=== PATIENT | female | born 1950 | race Hispanic/Latino ===

== ENCOUNTER 2017-02-25 01:38 | Observation (INO) | payer BC ==
[~2017-02-25] VITALS: Ht 152.4 cm; Wt 72.7 kg
[2017-02-25 02:28] LABS: HEMATOCRIT 33.6 % (36.0-46.0); MCH 25.3 PG (29.0-34.0); MCV 81.8 FL (83-99); MEAN PLAT.VOLUME 9.6 uM^3 (9.5-12.4); PLATELET COUNT 368 K/uL (156-360); RBC DIS.WIDTH-CV 15.5 % (11.8-14.6); RBC DIS.WIDTH-SD 46.2 % (39-53); RED BLOOD COUNT 4.11 M/uL (3.80-5.20); WHITE BLOOD COUNT 8.3 K/uL (4.1-10.2)
[2017-02-25 02:38] LABS: CHLORIDE 108 mEq/L (99-109); POTASSIUM 3.6 mEq/L (3.7-5.4); SODIUM 141 mEq/L (136-147)
[2017-02-25 02:40] LABS: GLUCOSE 127 mg/dL (70-99)
[2017-02-25 02:41] LABS: ANION GAP 6 MEQ/L (2-14)
[2017-02-25 02:44] LABS: UREA NITROGEN (BUN) 17 mg/dL (9-23)
[2017-02-25 02:48] LABS: GFR ESTIMATE (CALCULATED) > 59 mL/min/
[2017-02-25 05:07] LABS: TOTAL BILIRUBIN 0.2 mg/dL (0.0-1.0)
[2017-02-25 05:08] LABS: ALKALINE PHOSPHATASE 116 IU/L (3-129)
[2017-02-25 05:10] LABS: DIRECT BILIRUBIN 0.1 mg/dL (0.0-0.3); TROP-I INTERPRETATION NEGATIVE; TROPONIN-I < 0.01 ng/mL (0.0-0.30)
[2017-02-25 05:11] LABS: LIPASE 18 U/L (1.0-51.0)
[2017-02-25 08:29] LABS: SALICYLATE < 3.0 MG/DL (15-30)
[2017-02-25 09:47] VITALS: BP 136/74
[2017-02-25 12:01] VITALS: BP 119/55
[2017-02-25 14:07] LABS: IMM.RETIC FRACTION 13.1 % (3-19); RETIC HGB EQUIVALENT 27.4 (28-36); RETICULOCYTE COUNT 1.2 % (0.5-1.8)
[2017-02-25 16:05] VITALS: BP 118/55
[2017-02-25 16:09] LABS: TROP-I INTERPRETATION NEGATIVE; TROPONIN-I < 0.01 ng/mL (0.0-0.30)
[2017-02-25 16:23] LABS: IRON 50 MCG/DL (35-150)
[2017-02-25 16:28] LABS: FERRITIN 4 NG/ML (10-291)
[2017-02-25 20:36] LABS: TROP-I INTERPRETATION NEGATIVE; TROPONIN-I < 0.01 ng/mL (0.0-0.30)
[2017-02-25 23:30] VITALS: BP 117/55
[2017-02-26 03:20] VITALS: BP 132/67; BP 140/73
[2017-02-26 07:21] VITALS: BP 129/60
[2017-02-26 08:17] VITALS: BP 110/59
[2017-02-26 08:19] VITALS: BP 116/61
== END 2017-02-26 10:28 | disposition home or self-care (01) ==
LOC: EME 01:38 → EDOF 08:49 → 5WEST 08:49 → ENRESERV 08:53 → 5WEST 09:34 → ENPENDDIS 02-26 → 5WEST 02-26 10:28
PROVIDERS: Internal Medicine
DX: R55 Syncope and collapse (principal); S06.0X9A Concussion with loss of consciousness of unspecified duration, initial encounter; I10 Essential (primary) hypertension; D64.9 Anemia, unspecified; R42 Dizziness and giddiness; R53.1 Weakness; R91.1 Solitary pulmonary nodule
CPT/HCPCS: 70450; 71020; 80048; 80076; 82607; 82728; 82746; 83540; 83690; 84466; 84484; 85027; 85045; 93005; 93306; 93880; 99281; 99285; G0378; G0480; J7030